=== PATIENT | male | born 1995 | race African-American/Black ===

== ENCOUNTER 2019-01-31 08:14 | Emergency (ER) | payer BC ==
--- NOTE | 2019-01-31 08:35 | EDM.PDOC ---
ED HPI GENERAL MEDICAL PROBLEM - General Chief Complaint: Gastrointestinal Problem Stated Complaint: RECTUM PAIN Time Seen by Provider: 01/31/19 08:33 Source of Information: Reports: Patient History Limitations: Reports: No Limitations - History of Present Illness INITIAL COMMENTS - FREE TEXT/NARRATIVE: HISTORY AND PHYSICAL: History of present illness: Patient is a 24-year-old male presents to the ED with complaint of rectal pain. He states he had a bowel movement last night and has been having pain since then. He states he has had some blood in stool in the past but not recently. He denies fevers, chills, nausea, vomiting, diarrhea, constipation, melena, or hematochezia. He denies significant past medical history. Review of systems: As per history of present illness and below otherwise all systems reviewed and negative. Past medical history: As per history of present illness and as reviewed below otherwise noncontributory. Surgical history: As per history of present illness and as reviewed below otherwise noncontributory. Social history: No reported history of drug or alcohol abuse. Family history: As per history of present illness and as reviewed below otherwise noncontributory. Physical exam: General: Patient sitting comfortably in no acute distress and nontoxic appearing HEENT: Atraumatic, normocephalic, pupils reactive, negative for conjunctival pallor or scleral icterus, mucous membranes moist, throat clear, neck supple, nontender, trachea midline. No meningeal signs. Lungs: Clear to auscultation, breath sounds equal bilaterally, chest nontender. Heart: S1S2, regular, negative for clicks, rubs, or overt murmur. Abdomen: Soft, nondistended, nontender. Negative for masses or hepatosplenomegaly. Negative for costovertebral tenderness. No rigidity, rebound , guarding. Pelvis: Stable nontender. Genitourinary: Deferred. Rectal: No external or internal hemorrhoids appreciated. No erythema, induration , or fluctuance. There is a small fissure at the of the rectum noted. Extremities: Atraumatic, negative for cords or calf pain. Neurovascular unremarkable. Neuro: Awake, alert, oriented. Cranial nerves II through XII unremarkable. Cerebellum unremarkable. Motor and sensory unremarkable throughout. Exam nonfocal. Notes: Diagnostics: none Therapeutics: none Prescriptions: Impression: Rectal fissure Plan: Increased water and fiber and take miralax to soften bowel movements. Take sitz baths 10-15 minutes 2-3 times daily. Use topical lidocaine gel as instructed Follow up with primary care provider Return to ED As needed as discussed Definitive disposition and diagnosis as appropriate pending reevaluation and review of above. rectal pain Pain Score (Numeric/FACES): 7 - Related Data Allergies Allergy/AdvReac Type Severity Reaction Status Date / Time No Known Allergies Allergy Verified 01/31/19 08:27 Home Meds: Home Meds Lidocaine 2% [Xylocaine 2% Jelly] 1 ml TOP TID #1 tube 01/31/19 [Rx] Past Medical History - Past Health History Medical/Surgical History: Denies Medical/Surgical History Social & Family History - Family History Family Medical History: Noncontributory - Tobacco Use Smoking Status *Q: Never Smoker - Recreational Drug Use Recreational Drug Use: No ED ROS GENERAL - Review of Systems Review Of Systems: ROS reveals no pertinent complaints other than HPI. ED EXAM, GI/ABD - Physical Exam Exam: See Below (see dictation) Course - Vital Signs Last Recorded V/S: Last Vital Signs Temp 96.2 F 01/31/19 08:28 Pulse 60 01/31/19 08:28 Resp 18 01/31/19 08:28 BP 157/71 H 01/31/19 08:28 Pulse Ox 100 01/31/19 08:28 Departure - Departure Time of Disposition: 08:54 Disposition: Home, Self-Care 01 Condition: Good Clinical Impression: Anal fissure - Discharge Information Referrals: PCP,None [Primary Care Provider] - Forms: ED Department Discharge Additional Instructions: The following information is given to patients seen in the emergency department who are being discharged to home. This information is to outline your options for follow-up care. We provide all patients seen in our emergency department with a follow-up referral. The need for follow-up, as well as the timing and circumstances, are variable depending upon the specifics of your emergency department visit. If you don't have a primary care physician on staff, we will provide you with a referral. We always advise you to contact your personal physician following an emergency department visit to inform them of the circumstance of the visit and for follow-up with them and/or the need for any referrals to a consulting specialist. The emergency department will also refer you to a specialist when appropriate. This referral assures that you have the opportunity for follow-up care with a specialist. All of these measure are taken in an effort to provide you with optimal care, which includes your follow-up. Under all circumstances we always encourage you to contact your private physician who remains a resource for coordinating your care. When calling for follow-up care, please make the office aware that this follow-up is from your recent emergency room visit. If for any reason you are refused follow-up, please contact the [facility] Emergency Department at and asked to speak to the emergency department charge nurse. [facility] [address] [place] [id number] [facility] [address] [place] [id number] Return to ED As needed as discussed Increased water and fiber and take miralax to soften bowel movements. Take sitz baths 10-15 minutes 2-3 times daily. Use topical lidocaine gel as instructed Follow up with primary care provider
== END 2019-01-31 09:02 | disposition home or self-care (01) ==
LOC: MW.ED 08:14
DX: K60.2 Anal fissure, unspecified (principal)
CPT/HCPCS: 99283